=== PATIENT | female | born 1930 | race Caucasian/White ===

== ENCOUNTER 2016-12-30 14:26 | Emergency (ER) | payer MEDICARE, OTHER ==
[~2016-12-30 14:26] MED LIST: ADALAT CC30 MG PO; ADVAIR45P INH; ASAB PO; AT25 PO; ATV.5 PO; B121000P SC; CIP5 PO; DCN100 PO; DEMA100 PO; DEXILANT; DEXILANT PO; EMLA TOP; FOLIC PO; HALF81 PO; HYDROCORT12 TOP; I-CAPS PO; ICAPS MV PO; IMDUR30 PO; IMDUR60 PO; IMOD PO; IRON PO; KAPIDEX60 MG PO; L20 PO; LEVAQUIN5T PO; LIPITOR40 PO; LOPRESS HC100 MG/25 PO; MCZ25 PO; MEG20 PO; MELA3 PO; MELATONIN CR3 MG PO; NEXIUM40 PO; NIFEDIAC CC30 MG PO; NIFEDICAL XL30 MG PO; NITROSTAT0.4 MG SL; NXL3 PO; ORGAN-I NR200 MG PO; OXECTA5 MG PO; OXYCOD PO; OXYIR5 MG PO; PCET PO; PHOSLO PO; PLAVIX; PLAVIX PO; PR25 PO; PRIM50B PO; REFRESH OP; REFRESH OPH; ROCALTROL0.25 MCG OR; ROCALTROL0.5 MCG OR; SENSIPAR30 M1 PO; SKELAXIN8 PO; SUCR PO; TESSALON200 MG PO; TOPXL100 PO; TOPXL50 PO; TRANSSCOP TOP; TUMSROLL PO; ZANAFLEX 4 MG TA4 MG PO; ZOL100 PO; ZOL50 PO; [UNRECOGNIZED DRUG - OTHER] PO; [UNRECOGNIZED DRUG - OTHER] PO; [UNRECOGNIZED DRUG - OTHER] PO; [UNRECOGNIZED DRUG - OTHER] TOP
== END 2016-12-30 17:30 | disposition home or self-care (01) ==
LOC: ER 14:26
DX: I12.0 Hypertensive chronic kidney disease with stage 5 chronic kidney disease or end stage renal disease (principal); N18.6 End stage renal disease; Z99.2 Dependence on renal dialysis; G47.30 Sleep apnea, unspecified; I50.9 Heart failure, unspecified; F03.90 Unspecified dementia, unspecified severity, without behavioral disturbance, psychotic disturbance, mood disturbance, and anxiety
CPT/HCPCS: 99285

== ENCOUNTER 2017-03-17 15:54 | Emergency (ER) | payer MEDICARE, OTHER ==
[2017-03-17 15:48] LABS: BASOPHILS 0.2 %; BASOPHILS ABSOLUTE 0.01 10/3/uL (0.0-0.16); EOSINOPHILS 1.6 %; EOSINOPHILS ABSOLUTE 0.08 10/3/uL (0.0-0.53); ER CBC TAT 0 Hrs 08 Mins; IMMATURE GRANULOCYTES 0.2 %; IMMATURE GRANULOCYTES ABSOLUTE 0.01 10/3/uL (0.0-0.11); LYMPHOCYTES 17.6 %; LYMPHOCYTES ABSOLUTE 0.86 10/3/uL (0.67-4.30); MEAN CORPUS HGB CONC 34.6 g/dL (32.0-36.0); MEAN CORPUSCULAR VOLUME 98.1 fL (80-100); MEAN PLATELET VOLUME 10.9 fL (9.2-13.0); MONOCYTES 4.9 %; MONOCYTES ABSOLUTE 0.24 10/3/uL (0.21-1.20); NEUTROPHILS 75.5 %; PLATELET COUNT 165 10/3/uL (150-400); RBC DISTRIBUTION WIDTH 14.6 % (12.0-16.0); WHITE BLOOD CELLS 4.9 10/3/uL (4.5-10.5)
[2017-03-17 15:51] LABS: HEMATOCRIT 41.3 % (36.0-48.0); HEMOGLOBIN 14.3 g/dL (12.0-16.0); MANUAL DIFF NO %; RED CELL COUNT 4.21 10/6/uL (4.0-5.6)
[2017-03-17 16:02] LABS: BUN (BLOOD UREA NITROGEN) 37 MG/DL (6-23); CHEST PAIN PROFILE TAT 0 Hrs 22 Mins; CHLORIDE, SERUM 102 MMOL/L (96-112); CO2 (CARBON DIOXIDE) 29 MMOL/L (24-34); CREATININE 4.28 MG/DL (0.55-1.02); GFR AFRICAN AMERICAN 10 ML/MIN (>=60); GFR NON AFRICAN AMERICAN 9 ML/MIN (>=60); GLUCOSE, SERUM 81 MG/DL (60-99); POTASSIUM, SERUM 4.6 MMOL/L (3.5-5.3); SODIUM, SERUM 140 MMOL/L (135-148); TROPONIN I 0.04 NG/ML (<0.05)
[2017-03-17 16:08] LABS: PARTIAL THROMBO TIME 29.6 SEC (22.5-37.2); PROTIME (NOT ORD) 13.4 SEC (12.0-14.5)
[2017-03-17 16:17] LABS: ASCORBIC ACID (UR NOT ORDER) NEG (NEG); BILIRUBIN, URINE NEGATIVE (NEG); KETONE, URINE NEGATIVE (NEG); LEUKOCYTE ESTERASE(NOT OR LARGE (NEG); NITRITE (URINE) NEG (NEG); WBC (NOT ORDERED) (RFLEX) 120 (0-5)
[2017-03-17 16:18] LABS: ER URINALYSIS TAT 0 Hrs 37 Mins
== END 2017-03-17 20:43 | disposition home or self-care (01) ==
LOC: ER 15:54
PROVIDERS: Emergency Medicine
DX: R07.81 Pleurodynia (principal); N39.0 Urinary tract infection, site not specified; R10.9 Unspecified abdominal pain; I13.0 Hypertensive heart and chronic kidney disease with heart failure and stage 1 through stage 4 chronic kidney disease, or unspecified chronic kidney disease; N18.9 Chronic kidney disease, unspecified; I50.9 Heart failure, unspecified; F03.90 Unspecified dementia, unspecified severity, without behavioral disturbance, psychotic disturbance, mood disturbance, and anxiety; Z99.2 Dependence on renal dialysis; Z95.5 Presence of coronary angioplasty implant and graft; Z95.1 Presence of aortocoronary bypass graft; Z88.2 Allergy status to sulfonamides; Z88.5 Allergy status to narcotic agent; Z88.6 Allergy status to analgesic agent; Z79.82 Long term (current) use of aspirin; Z79.899 Other long term (current) drug therapy
CPT/HCPCS: 80048; 81001; 83735; 84484; 85025; 85610; 85730; 87077; 87086; 87186; 93005; 96374; 99285; A9270-GY

== ENCOUNTER 2017-03-21 19:52 | Inpatient (IN) | payer MEDICARE, OTHER ==
--- NOTE | ~2017-03-21 | CN ---
Consultation Report [facility] [address] [place]. [address] NAME: KEV RONDON : [birth year] STATUS : ADM IN [facility]#: [id number] AGE: 86 ADM/REG DATE : 03/22/17 MR#: [id number] REPORT SERV DATE: 03/25/17 DICTATED BY: AMINAH SALAS DATE: 03/25/17 REPORT STATUS : Draft TRANSCRIBED BY: MODRegine DATE: 03/25/17 NEUROLOGY CONSULTATION DATE OF CONSULTATION: 03/24/2017 REASON FOR CONSULTATION: Acute mental status change and "facial tic." HOSPITALIST/MOTOR SCOOTER REPAIRER: Marlo Chacon M.D. HISTORY OF PRESENT ILLNESS: The patient is an 86-year-old female, who was admitted to the hospital because of acute kidney injury in addition to chronic kidney disease. The patient is currently receiving hemodialysis. The patient has urinary tract infection and has been encephalopathic. In addition to this, it has been noted that she has a facial tic, there was a concern that she may be having seizure activity. Consequently, Neurology was consulted. PAST MEDICAL HISTORY: End-stage renal disease, hemodialysis, coronary artery disease (coronary artery bypass grafting), anxiety, frequent falls, peripheral artery disease, anemia, vertigo, essential tremor, restless legs syndrome, depression, and peripheral vascular disease. PAST SURGICAL HISTORY: Revascularization for peripheral vascular disease, coronary artery bypass grafting. HOME MEDICATION: Artificial Tears, aspirin 81 mg q.a.m., Sensipar tab 30 mg daily, Plavix 75 mg daily, Imdur 60 mg twice a day, Diamode 2 mg p.r.n. diarrhea, Antivert 25 mg t.i.d. p.r.n., Adalat CC 30 mg twice a day, Mysoline 50 mg Friday, Friday, and Friday, Requip 0.5 mg twice a day, Zoloft 100 mg at bedtime, Demadex 100 mg Friday, , Friday, and Friday. ALLERGIES: SULFA, ANTI-INFLAMMATORIES, AND CODEINE. SOCIAL HISTORY: The patient lives in assisted living. She does not drink, smoke, or use illicit drugs. FAMILY HISTORY: Unknown. The patient is unable to give us a good history. REVIEW OF SYSTEMS: The patient unable to give a good history. PHYSICAL EXAMINATION: VITAL SIGNS: The patient is an 86-year-old female, who stands and 170.18 cm tall, weighs 58.74 kilos. She is afebrile. Heart rate 51, respiratory rate 16, O2 saturations on room air 97%, blood pressure 117/55. Consultation Report [facility] [id number] [place]. [address] NAME: KEV RONDON : [birth year] STATUS : ADM IN [facility]#: [id number] AGE: 86 ADM/REG DATE : 03/22/17 MR#: [id number] REPORT SERV DATE: 03/25/17 DICTATED BY: AMINAH SALAS DATE: 03/25/17 REPORT STATUS : Draft TRANSCRIBED BY: MAICOL DATE: 03/25/17 NEURO: She is awake, she is extremely hard of hearing. She is oriented to person only. She can follow a few simple commands. Voice is hypophonic. She is bradykinetic and Jordin phrenic. Pupils are 3 mm. PERRLA. Cranial nerves 2 through 12 are intact. She can move all extremities x4. She does have slight myoclonus on the right side of her face and with the right shoulder. DIAGNOSTIC DATA: CT of the brain, no acute changes. Okewahgn-yj-bxpjvoqv atrophy. Chest x- ray cardiomegaly. B12 is 245. ASSESSMENT/PLAN: 1. Acute metabolic encephalopathy, multifactorial in nature. The patient has a urinary tract infection. She also has acute kidney injury in addition to her chronic kidney disease. She also has a low B12 level. At this point, I would recommend treating the underlying problems. 2. Myoclonus. We will obtain an EEG. Start the patient on Keppra 500 mg IV every 12 hours. 3. B12 deficiency. The patient's B12 will be replaced with cyanocobalamin IM. 4. The patient is a DNR. Thank you again for including us in consultation. We will follow with you. LAYA/MAICOL inah Salas DNP, ACNP-BC / [id number] CC: Marlo Chacon Jr, M.D. Sam Jacobs M.D.
--- NOTE | ~2017-03-21 | DS ---
Discharge Summary [facility] [address] [place]. [address] NAME: KEV RONDON : [birth year] STATUS : DIS IN PAT#: [id number] AGE: 86 ADM/REG DATE : 03/22/17 MR#: [id number] REPORT SERV DATE: 04/04/17 DICTATED BY: KASEY SCOTT DATE: 04/03/17 REPORT STATUS : Draft TRANSCRIBED BY: MODRegine DATE: 04/03/17 Data Collection from hospitalization DISCHARGE DIAGNOSES: 1. Acute metabolic encephalopathy. 2. Myoclonus. 3. End-stage renal disease. 4. Urinary tract infection. 5. Left great toe wound. 6. Chronic diastolic heart failure. 7. Obstructive sleep apnea. 8. Anxiety. 9. Falls. 10.Peripheral arterial disease. 11.Peripheral vascular disease. 12.Anemia. CONSULTATION: Aminah Hanley DNP, [facility]ANNER[facility]- PROCEDURES PERFORMED: 1. CT scan of the brain without contrast, 03/21/2017. 2. MRI of the brain without contrast, 03/24/2017. 3. Electroencephalogram, 03/23/2017. MEDICATIONS: Aspirin 81 mg every morning; Sensipar 30 mg at bedtime; Plavix 75 mg every morning; vitamin B12 1000 mcg IM every 30 days; Imdur 60 mg twice a day; multivitamins with minerals one tablet every morning; Procardia XL 30 mg twice a day; Mysoline 25 mg at bedtime as instructed; Requip 0.5 mg twice a day; Zoloft 100 mg at bedtime; Demadex 100 mg on Friday, , Friday, Friday at bedtime; Adalat CC 30 mg twice a day; Sensipar 30 mg every evening; artificial tears one drop daily as needed; Antivert 25 mg three times a day as needed; Diamode 2 mg as needed. CONDITION AT DISCHARGE: Stable. DISPOSITION: The patient was discharged to the [facility] on a renal diet with activities as instructed. HOSPITAL COURSE: This is an 86-year-old female, who resides at the [facility] and dialyzes on Mondays, Wednesdays, and Fridays. She had recently been evaluated at the [facility] Emergency Department for possible urinary tract infection. She was sent out to return to the [facility] facility, where she currently resides chronically and is on oral Levaquin. Subsequent resulting profile of her urinary specimen suggested that she was not sensitive to the oral Levaquin. Her son attempted to contact the facility-[facility] and dialysis unit in an effort to understand what the urinary culture was sensitive to. Unfortunately, by his recall, he was unable to receive answers to those questions. Urinary cultures here available at [facility] do in fact show an insensitivity to levofloxacin as well as tetracycline. The remainder of available antibiotics listed on the urinary workup appeared to show sensitivity. The patient's mentation continued to worsen Discharge Summary [facility] [address] [facility] [place]. [address] NAME: KEV RONDON : [birth year] STATUS : DIS IN PAT#: [id number] AGE: 86 ADM/REG DATE : 03/22/17 MR#: [id number] REPORT SERV DATE: 04/04/17 DICTATED BY: KASEY SCOTT DATE: 04/03/17 REPORT STATUS : Draft TRANSCRIBED BY: MODRegine DATE: 04/03/17 and she was seen here at the request of the facility and her son for evaluation. She had altered mentation. She was awake and alert in her bed. She was definitively altered. Her son states that on most days with exception of dialysis days, she is active at her facility and does participate in daily activities. She was admitted to the hospital at this time for further evaluation and treatment. Upon admission, creatinine level was 4.61. A CT scan of the brain without contrast showed moderate advanced diffuse cerebral involutional changes and moderate deep white chronic microvascular ischemic changes. No acute CVA or other intracranial pathology was noted. Urine culture in the emergency department had been obtained. Recent diagnostic urinalysis culture to show Enterococcus faecalis. She also has a great toe wound on the left that appears to be in a healing phase; however, it was concerning to her son. Considering her altered mentation, it was questionable if this was related to her urinary tract infection or other changes. The CT scan of her brain was currently negative. She did not have medications that would appear to be stationary. B12, folic acid, and ammonia level were going to be checked. She would maintain her hemodialysis schedule. Ampicillin was going to be initiated. We would protect the left upper extremity fistula. On the , her mentation had improved. She did complain of some neck pain. The neck was going to be x- rayed. Electroencephalogram was performed. Due to her altered mental status and encephalopathy, this was an abnormal EEG characterized by the presence of slowing and disorganization of cerebral activity. There was an increased of sharp in appearance waveforms seen anteriorly. Clinical correlation was recommended. No sustained epileptiform or paroxysmal activity was seen during this study. It was felt that this EEG may be compatible with the presence of diffuse cerebral dysfunction. The nature of which could not be determined on the basis of the EEG alone. Clinical correlation was recommended. Cervical spine x-ray showed probable demineralization. There was inadequate evaluation of C7. Otherwise, there was no evidence of acute cervical spine abnormality. On 03/24/2017, she did complain of headache and neck pain. Hemodialysis therapy was performed. She was seen by Aminah Hanley regarding acute mental status change and "facial tic." There was concern that she may be having seizure activity. A neurologic consult has been requested. Her B12 level was 245. This was going to be supplemented with cyanocobalamin IM. The patient was started on IV Keppra. The acute metabolic encephalopathy was felt to be multifactorial in nature. She does have a urinary tract infection and also acute kidney injury in addition to her chronic kidney disease. The patient is a DNR code status. On the , her only complaint was neck pain. An MRI of the brain without contrast had been performed. There was moderate to marked generalized atrophy. There was evidence of old deep white matter ischemic changes. There was some mild midbrain atrophy. There was an incidental soft-tissue mass, probably polyp arising off the posterior aspect of the nasal septum projecting into the nasopharyngeal airway. She had no witnessed myoclonus. She was drowsy. The Keppra dose was decreased. The following day, she said she felt like she needed to urinate, but could not. Bladder scan was going to be checked. Discharge planning was performed. Her T-max was 98.4. White count was 5.0. Keppra was continued. On 03/27/2017, she did not feel very good. She did complain of neck pain at times. Her lungs were clear. Keppra was continued. Discharge instructions were given. Due to her improved and stable condition, she was discharged to the [facility] with the above-stated instructions. Discharge Summary [facility] [address] [place]. [address] NAME: KEV RONDON : [birth year] STATUS : DIS IN PAT#: [id number] AGE: 86 ADM/REG DATE : 03/22/17 MR#: [id number] REPORT SERV DATE: 04/04/17 DICTATED BY: KASEY SCOTT DATE: 04/03/17 REPORT STATUS : Draft TRANSCRIBED BY: MODL DATE: 04/03/17 Information collected by: Agnieszka Schafer I submit the above information as my discharge summary. TG/AMICOL Kasey Scott M.D. / [id number] CC: Toby Zayas Jr, M.D. [facility]
--- NOTE | ~2017-03-21 | EEG ---
Electroencephalogram [facility] [id number] [place]. [address] NAME: KEV RONDON : [birth year] STATUS : ADM IN PAT#: [id number] AGE: 86 ADM/REG DATE : 03/22/17 MR#: [id number] REPORT SERV DATE: 03/25/17 DICTATED BY: HEATHER MENDEZ DATE: 03/25/17 REPORT STATUS : Draft TRANSCRIBED BY: MODL DATE: 03/25/17 INTERPRETING PHYSICIAN: Heather Mendez MD, - Neurology. EEG NUMBER: [id number]. REASON FOR EEG: Altered mental status encephalopathy. 23 surface electrodes, 10-20 international placement was used. The patient was noted to be awake, drowsy, and asleep. The patient was confused throughout the study. Photic stimulation was performed. Video monitoring was utilized. During the awake portion of the recording, the background activity consisted of moderate to higher voltage, poorly organized 8 to 9 cycles per second located in the posterior head regions. During drowsiness, lying in light sleep, increase of slower frequencies was observed throughout. The waveforms intermittently appeared sharp in frontal regions. No Systane or epileptiform activity was seen during the study. The patient's ekg monitor showed sinus bradycardia with heart rate of approximately 50 beats per minute. During sleep, no additional abnormalities were observed. IMPRESSION: ABNORMAL EEG CHARACTERIZED BY PRESENCE OF SLOWING AND DISORGANIZATION OF CEREBRAL ACTIVITY. INCREASE OF SHARP IN APPEARANCE WAVEFORMS WAS SEEN ANTERIORLY. CLINICAL CORRELATION IS RECOMMENDED. NO SUSTAINED EPILEPTIFORM OR PAROXYSMAL ACTIVITY WAS SEEN DURING THIS STUDY. THIS EEG MAY BE COMPATIBLE WITH PRESENCE OF DIFFUSE CEREBRAL DYSFUNCTION. THE NATURE OF WHICH COULD NOT BE DETERMINED ON THE BASIS OF THE EEG ALONE. CLINICAL CORRELATION IS RECOMMENDED. UMERA/MAICOL Heather Mendez MD / [id number] CC: Marol Chacon Jr, M.D. Sam Jacobs M.D.
--- NOTE | ~2017-03-21 | HP ---
History And Physical [facility] [address] [place]. [address] NAME: KEV RONDON : [birth year] STATUS : ADM Jan PAT#: [id number] AGE: 86 ADM/REG DATE : 03/21/17 MR#: [id number] REPORT SERV DATE: 03/22/17 DICTATED BY: KASEY SCOTT DATE: 03/22/17 REPORT STATUS : Draft TRANSCRIBED BY: MODL DATE: 03/22/17 DATE OF ADMISSION: 03/21/2017 REASON FOR ADMISSION: Altered mentation, questionable UTI in a hemodialysis patient. HISTORY OF PRESENT ILLNESS: This is an 86-year-old female patient who resides at the [facility] and dialyzes on a Friday, Friday, Friday schedule. She was recently evaluated at [facility] Emergency Department for possible urinary tract infection. She was sent out to return to the [facility] where she currently resides chronically on p.o. Levaquin. Subsequent resulting profile of her urinary specimen suggested that she was not sensitive to p.o. Levaquin. Her son who provides is an active practicing pharmacist he attempted to contact the facility, [facility], and her dialysis unit in effort to understand what the urinary culture was sensitive to. Unfortunately, by his recall today, he was unable to receive answers to those questions. Urinary cultures here to me available at [facility] do in fact show an insensitivity to levofloxacin as well as tetracycline. The remainder of available antibiotics listed on the urinary workup appear to show sensitivity. The patient's mentation continued to worsen, and she was sent here at the request of the facility and son for evaluation and is admitted now for altered mentation. She is awake and alert in the bed. She is definitively altered. The son states that on most days with exception of dialysis day she is active at her facility and does participate in daily activities. She is awake and alert. Does not verbalize much during interaction. Most of her recent medical information is gathered with the assistance of her son who is at bedside. PAST MEDICAL HISTORY: Positive for end-stage renal disease, Friday, Friday, Friday hemodialysis via left upper extremity access. History is also significant for CABG with known occluded SVG, MUSHTAQ, diastolic CHF, right total knee replacement, anxiety, falls, PAD with recent revascularization by Dr. Young in September of 2016, previous admissions for frequent falls, altered mentation, anemia, peripheral vascular disease with previous left lower extremity revascularization. REVIEW OF SYSTEMS: Completed with the assistance of her family at the bedside. The patient is unable to participate due to her current mental status. ALLERGIES: SHE LISTS ALLERGIES TO SULFA ANTIBIOTICS, NONSTEROIDAL MEDICATIONS, CODEINE. ACTIVE MEDICATIONS: Include Artificial Tears one drop OPH daily p.r.n., ASA 81 mg daily, Sensipar 30 mg p.o. at bedtime, Plavix 75 mg p.o. daily, isosorbide 60 mg p.o. b.i.d., Levaquin 250 mg q.48 x three doses, 2 mg p.o. daily p.r.n., Antivert 25 mg p.o. t.i.d. p.r.n., multivitamin tabs one daily, 30 mg p.o. b.i.d., primidone 50 mg p.o. daily, Requip 0.5 mg p.o. b.i.d., Zoloft 100 mg p.o. at bedtime, Demadex 100 mg p.o. Friday, , Friday, and Friday. SOCIAL HISTORY: No ETOH. No illicit drugs. No tobacco. Does live in an assisted living facility per her recent medical history. History And Physical [address] [address] NAME: KEV RONDON : [birth year] STATUS : ADM Jan PAT#: [id number] AGE: 86 ADM/REG DATE : 03/21/17 MR#: [id number] REPORT SERV DATE: 03/22/17 DICTATED BY: KASEY SCOTT DATE: 03/22/17 REPORT STATUS : Draft TRANSCRIBED BY: MAICOL DATE: 03/22/17 PHYSICAL EXAMINATION: VITAL SIGNS: Blood pressure 180/76, temperature 98.7, respiratory rate 18, heart rate is 62 beats per minute. GENERAL: She is awake and alert. Does not answer questions or verbally interact with altered mentation at this point. No acute distress on evaluation. HEENT: Normocephalic and atraumatic. Normal ocular movements. No scleral icterus, conjunctival pallor is appreciated. NECK: Supple without thyromegaly. No JVD or mass. CHEST: Shows positive S1 and S2. No rubs or gallops. LUNGS: Diminished throughout. Normal expansion effort bilaterally. GI: Shows positive bowel sounds in all four quadrants. No appreciable mass, tenderness. : Deferred. EXTREMITIES: Show positive pulses. No clubbing, cyanosis, or edema. NEUROLOGIC: She is unable to be tested in her current state. SKIN: Warm, dry, and intact visualized surfaces without rash, lesions, or ecchymosis with exception of her left great toe which has an early stage II wound that has received previous treatment. PSYCHIATRIC: Mood and affect are not assessable due to her current status. DIAGNOSTIC DATA: Pertinent laboratories and imaging to this evaluation are as follows. B- natriuretic peptide most recent 1279.0. Renal Function Panel: Sodium 138, potassium 4.8, chloride 103, CO2 of 28, BUN 35, creatinine 4.61, reflected GFR 8 mL/minute, glucose of 69, calcium 8.4, phosphorus 6.0, albumin 3.0. Portable chest x-ray shows chronic changes of prior granulomatous exposure. Cardiomegaly is stable. Prior CABG. Lungs are clear of infiltrate or failure on evaluation. CT of the brain without contrast identifies moderate advanced diffuse cerebral involutional changes and moderate deep white chronic microvascular ischemic changes. No acute CVA or other intracranial pathology is noted. Urinary culture collected at a prior evaluation in the emergency department as listed in the HPI. IMPRESSION AND PLAN: This is an end-stage renal disease patient with a recent medical history as reflected above related by her son who is at bedside during evaluation with worsening altered mentation, now admitted to [facility]. Recent diagnostic urinalysis cultured to show Enterococcus faecalis with julien-sensitivity with exception of antibiotic that was provided here and tetracycline. The patient also has a left great toe wound that appears to be in its healing phases, however, is concerning to the son. Considering her altered mentation, it is questionable if this is related to her urinary tract infection or other changes. CT of her brain is currently negative. She does not have medications that would appear to be stationary. We will check B12, folic acid as well as ammonia level. Request Neurologic evaluation on rounds today. She has maintained her History And Physical [facility] [address] [place]. [address] NAME: KEV RONDON : [birth year] STATUS : ADM Jan PAT#: [id number] AGE: 86 ADM/REG DATE : 03/21/17 MR#: [id number] REPORT SERV DATE: 03/22/17 DICTATED BY: KASEY SCOTT DATE: 03/22/17 REPORT STATUS : Draft TRANSCRIBED BY: MODL DATE: 03/22/17 hemodialysis schedule this week; however, she did miss previous week scheduling. With sensitivity noted on active medical record, ampicillin 1 g q.12 hours was suggested by the pharmacist antibiotic liaison, and we will initiate that today. Strict I's and Os. Daily weights. Protect her left upper extremity fistula. We will place her closer to the nurses' station to be closer to staff assistance considering her altered mentation, make her a high fall risk, and her bed alarm should remain on at all times. Physical Therapy evaluation and Occupational Therapy evaluation. Hopefully over the next three to five days, she will [facility]. Of note, the son states that the patient had previously discussed cessation of dialysis treatment after the holidays; however, she was dissuaded from this course of action by a family member and a member of clergy. Certainly, at this point, it is inappropriate to proceed in that direction. However, in future discussions, the patient may wish to move toward cessation of dialysis treatment on her own volition when her mentation is clear. Further modification of treatment plan may be made based on clinical presentation, patient laboratory results, further consultation with Renal attending. We appreciate the assistance of the pharmacy staff and recommendation of the antibiotics as well as Neurology providers in evaluation of this patient. DICTATED BY: Kasey Harrison NP JR/MAICOL Kasey Scott M.D. / [id number] CC: Toby Zayas Jr, M.D.
[2017-03-21 21:47] LABS: BASOPHILS 0.2 %; BASOPHILS ABSOLUTE 0.01 10/3/uL (0.0-0.16); EOSINOPHILS 1.3 %; EOSINOPHILS ABSOLUTE 0.06 10/3/uL (0.0-0.53); ER CBC TAT 0 Hrs 07 Mins; HEMATOCRIT 36.6 % (36.0-48.0); HEMOGLOBIN 12.4 g/dL (12.0-16.0); IMMATURE GRANULOCYTES 0.7 %; IMMATURE GRANULOCYTES ABSOLUTE 0.03 10/3/uL (0.0-0.11); LYMPHOCYTES 24.4 %; LYMPHOCYTES ABSOLUTE 1.09 10/3/uL (0.67-4.30); MANUAL DIFF NO %; MEAN CORPUS HGB CONC 33.9 g/dL (32.0-36.0); MEAN CORPUSCULAR HEMOGLOB 33.4 pg (26.0-34.0); MEAN CORPUSCULAR VOLUME 98.7 fL (80-100); MEAN PLATELET VOLUME 12.1 fL (9.2-13.0); MONOCYTES ABSOLUTE 0.27 10/3/uL (0.21-1.20); NEUTROPHILS 67.4 %; NEUTROPHILS ABSOLUTE 3.01 10/3/uL (2.02-8.40); PLATELET COUNT 98 10/3/uL (150-400); RBC DISTRIBUTION WIDTH 14.4 % (12.0-16.0); RED CELL COUNT 3.71 10/6/uL (4.0-5.6); WHITE BLOOD CELLS 4.5 10/3/uL (4.5-10.5)
[2017-03-21 22:03] LABS: CALCIUM, SERUM 8.2 MG/DL (8.5-10.4); CHLORIDE, SERUM 101 MMOL/L (96-112); CO2 (CARBON DIOXIDE) 27 MMOL/L (24-34); CREATININE 4.04 MG/DL (0.55-1.02); GFR AFRICAN AMERICAN 11 ML/MIN (>=60); GFR NON AFRICAN AMERICAN 9 ML/MIN (>=60); GLUCOSE, SERUM 78 MG/DL (60-99); POTASSIUM, SERUM 4.4 MMOL/L (3.5-5.3); SODIUM, SERUM 136 MMOL/L (135-148)
[2017-03-21 22:04] LABS: BUN (BLOOD UREA NITROGEN) 29 MG/DL (6-23); CHEST PAIN PROFILE TAT 0 Hrs 24 Mins; TROPONIN I 0.05 NG/ML (<0.05)
[2017-03-21] MEDS ORDERED: PLAVIX PO (22:05)
[2017-03-21] MEDS ORDERED: ASAB PO (22:05)
[2017-03-21] MEDS ORDERED: IMDUR60 PO (22:06)
[2017-03-21] MEDS ORDERED: LEVAQ250 PO (22:07)
[2017-03-21] MEDS ORDERED: ADALAT CC30 MG PO (22:08)
[2017-03-21] MEDS ORDERED: REQUIP5 PO (22:09)
[2017-03-21] MEDS ORDERED: MULTIVIT/MIN PO (22:10)
[2017-03-21] MEDS ORDERED: SENSIPAR30 M1 PO (22:10)
[2017-03-21] MEDS ORDERED: PRIM50B PO (22:11)
[2017-03-21] MEDS ORDERED: ZOL100 PO (22:11)
[2017-03-21] MEDS ORDERED: DEMA100 PO (22:12)
[2017-03-21] MEDS ORDERED: TEARS PURE OPH (22:12)
[2017-03-21] MEDS ORDERED: DIAMODE2 MG PO (22:13)
[2017-03-21] MEDS ORDERED: MCZ25 PO (22:13)
[2017-03-21 23:12] LABS: INTERNATIONAL NORMAL RATI 1.1 UNITS (-); PROTIME (NOT ORD) 14.1 SEC (12.0-14.5)
[2017-03-21 23:13] LABS: PARTIAL THROMBO TIME 30.2 SEC (22.5-37.2)
[2017-03-22 08:22] LABS: CALCIUM, SERUM 8.4 MG/DL (8.5-10.4); CHLORIDE, SERUM 103 MMOL/L (96-112); CO2 (CARBON DIOXIDE) 28 MMOL/L (24-34); GLUCOSE, SERUM 69 MG/DL (60-99); POTASSIUM, SERUM 4.8 MMOL/L (3.5-5.3); SODIUM, SERUM 138 MMOL/L (135-148)
[2017-03-22 08:23] LABS: BUN (BLOOD UREA NITROGEN) 35 MG/DL (6-23); CREATININE 4.61 MG/DL (0.55-1.02); GFR AFRICAN AMERICAN 9 ML/MIN (>=60); GFR NON AFRICAN AMERICAN 8 ML/MIN (>=60)
[2017-03-23 08:52] LABS: BASOPHILS 0.3 %; BASOPHILS ABSOLUTE 0.01 10/3/uL (0.0-0.16); EOSINOPHILS 4.1 %; EOSINOPHILS ABSOLUTE 0.14 10/3/uL (0.0-0.53); IMMATURE GRANULOCYTES 0.3 %; IMMATURE GRANULOCYTES ABSOLUTE 0.01 10/3/uL (0.0-0.11); LYMPHOCYTES 43.5 %; MEAN CORPUS HGB CONC 34.5 g/dL (32.0-36.0); MEAN CORPUSCULAR HEMOGLOB 34.3 pg (26.0-34.0); MEAN CORPUSCULAR VOLUME 99.4 fL (80-100); MEAN PLATELET VOLUME 11.6 fL (9.2-13.0); MONOCYTES 8.4 %; MONOCYTES ABSOLUTE 0.29 10/3/uL (0.21-1.20); NEUTROPHILS 43.4 %; PLATELET COUNT 117 10/3/uL (150-400); RBC DISTRIBUTION WIDTH 14.2 % (12.0-16.0); RED CELL COUNT 3.21 10/6/uL (4.0-5.6); WHITE BLOOD CELLS 3.5 10/3/uL (4.5-10.5)
[2017-03-23 08:54] LABS: HEMATOCRIT 31.9 % (36.0-48.0)
[2017-03-23 08:55] LABS: MANUAL DIFF NO %
[2017-03-23 09:35] LABS: ALBUMIN 2.9 G/DL (3.5-5.0); CHLORIDE, SERUM 102 MMOL/L (96-112); CO2 (CARBON DIOXIDE) 25 MMOL/L (24-34); PHOSPHORUS, SERUM 6.6 MG/DL (2.5-4.5); POTASSIUM, SERUM 4.6 MMOL/L (3.5-5.3); SODIUM, SERUM 135 MMOL/L (135-148)
[2017-03-23 09:38] LABS: BUN (BLOOD UREA NITROGEN) 50 MG/DL (6-23); CREATININE 6.15 MG/DL (0.55-1.02); FOLATE 7.2 NG/ML (>5.2); GFR AFRICAN AMERICAN 6 ML/MIN (>=60); GFR NON AFRICAN AMERICAN 6 ML/MIN (>=60); GLUCOSE, SERUM 87 MG/DL (60-99)
[2017-03-24 15:17] LABS: BASOPHILS 0.3 %; BASOPHILS ABSOLUTE 0.01 10/3/uL (0.0-0.16); EOSINOPHILS 4.1 %; EOSINOPHILS ABSOLUTE 0.15 10/3/uL (0.0-0.53); HEMATOCRIT 29.7 % (36.0-48.0); HEMOGLOBIN 10.1 g/dL (12.0-16.0); IMMATURE GRANULOCYTES 0.3 %; IMMATURE GRANULOCYTES ABSOLUTE 0.01 10/3/uL (0.0-0.11); LYMPHOCYTES 44.9 %; LYMPHOCYTES ABSOLUTE 1.63 10/3/uL (0.67-4.30); MEAN CORPUSCULAR HEMOGLOB 33.3 pg (26.0-34.0); MEAN PLATELET VOLUME 12.1 fL (9.2-13.0); MONOCYTES 7.2 %; MONOCYTES ABSOLUTE 0.26 10/3/uL (0.21-1.20); NEUTROPHILS 43.2 %; NEUTROPHILS ABSOLUTE 1.57 10/3/uL (2.02-8.40); PLATELET COUNT 111 10/3/uL (150-400); RBC DISTRIBUTION WIDTH 14.2 % (12.0-16.0); RED CELL COUNT 3.03 10/6/uL (4.0-5.6); WHITE BLOOD CELLS 3.6 10/3/uL (4.5-10.5)
[2017-03-24 15:18] LABS: MANUAL DIFF NO %
[2017-03-24 15:36] LABS: ALBUMIN 2.8 G/DL (3.5-5.0); CALCIUM, SERUM 7.3 MG/DL (8.5-10.4); CHLORIDE, SERUM 105 MMOL/L (96-112); CO2 (CARBON DIOXIDE) 26 MMOL/L (24-34); PHOSPHORUS, SERUM 7.5 MG/DL (2.5-4.5); POTASSIUM, SERUM 4.9 MMOL/L (3.5-5.3); SODIUM, SERUM 138 MMOL/L (135-148)
[2017-03-24 15:37] LABS: BUN (BLOOD UREA NITROGEN) 67 MG/DL (6-23); CREATININE 7.49 MG/DL (0.55-1.02); GFR AFRICAN AMERICAN 5 ML/MIN (>=60); GFR NON AFRICAN AMERICAN 4 ML/MIN (>=60); GLUCOSE, SERUM 106 MG/DL (60-99)
[2017-03-24 19:56] LABS: FREE T4 1.06 NG/DL (0.76-1.46)
[2017-03-24 19:57] LABS: CALCIUM, SERUM 8.3 MG/DL (8.5-10.4); ULTRASENSITIVE TSH 2.97 MCIU/ML (0.358-3.740)
[2017-03-24 20:13] LABS: INTACT PTH (ICMA) 510.2 PG/ML (10.0-65.0)
[2017-03-26 08:15] LABS: BASOPHILS 0.2 %; BASOPHILS ABSOLUTE 0.01 10/3/uL (0.0-0.16); EOSINOPHILS 2.4 %; EOSINOPHILS ABSOLUTE 0.12 10/3/uL (0.0-0.53); HEMATOCRIT 32.7 % (36.0-48.0); IMMATURE GRANULOCYTES 0.2 %; IMMATURE GRANULOCYTES ABSOLUTE 0.01 10/3/uL (0.0-0.11); LYMPHOCYTES 30.5 %; LYMPHOCYTES ABSOLUTE 1.53 10/3/uL (0.67-4.30); MANUAL DIFF NO %; MEAN CORPUS HGB CONC 33.6 g/dL (32.0-36.0); MEAN CORPUSCULAR HEMOGLOB 33.3 pg (26.0-34.0); MEAN CORPUSCULAR VOLUME 99.1 fL (80-100); MEAN PLATELET VOLUME 11.5 fL (9.2-13.0); MONOCYTES 5.2 %; MONOCYTES ABSOLUTE 0.26 10/3/uL (0.21-1.20); NEUTROPHILS 61.5 %; NEUTROPHILS ABSOLUTE 3.08 10/3/uL (2.02-8.40); PLATELET COUNT 116 10/3/uL (150-400); RBC DISTRIBUTION WIDTH 14.2 % (12.0-16.0)
[2017-03-26 08:37] LABS: ALBUMIN 2.9 G/DL (3.5-5.0); CALCIUM, SERUM 7.9 MG/DL (8.5-10.4); CHLORIDE, SERUM 107 MMOL/L (96-112); CO2 (CARBON DIOXIDE) 27 MMOL/L (24-34); GLUCOSE, SERUM 91 MG/DL (60-99); POTASSIUM, SERUM 4.8 MMOL/L (3.5-5.3); SODIUM, SERUM 143 MMOL/L (135-148)
[2017-03-26 08:39] LABS: BUN (BLOOD UREA NITROGEN) 43 MG/DL (6-23); CREATININE 5.52 MG/DL (0.55-1.02); GFR AFRICAN AMERICAN 7 ML/MIN (>=60); GFR NON AFRICAN AMERICAN 6 ML/MIN (>=60); PHOSPHORUS, SERUM 5.4 MG/DL (2.5-4.5)
== END 2017-03-27 14:45 | DRG 70 ==
LOC: ER 19:52 → 2SO 23:30
PROVIDERS: Emergency Medicine; Internal Medicine Nephrology; Nurse Practitioner; Registered Nurse
PROC: 5A1D60Z (ICD-10-PCS; principal; 2017-03-24)
DX: G93.41 Metabolic encephalopathy (principal); N18.6 End stage renal disease; I13.2 Hypertensive heart and chronic kidney disease with heart failure and with stage 5 chronic kidney disease, or end stage renal disease; N17.9 Acute kidney failure, unspecified; N39.0 Urinary tract infection, site not specified; I50.32 Chronic diastolic (congestive) heart failure; B95.2 Enterococcus as the cause of diseases classified elsewhere; B96.89 Other specified bacterial agents as the cause of diseases classified elsewhere; I25.10 Atherosclerotic heart disease of native coronary artery without angina pectoris; G47.33 Obstructive sleep apnea (adult) (pediatric); Z66 Do not resuscitate; Z96.651 Presence of right artificial knee joint; F41.9 Anxiety disorder, unspecified; I73.9 Peripheral vascular disease, unspecified; D64.9 Anemia, unspecified; L89.892 Pressure ulcer of other site, stage 2; G25.81 Restless legs syndrome; Z99.2 Dependence on renal dialysis; Z95.1 Presence of aortocoronary bypass graft; Z91.81 History of falling; Z99.81 Dependence on supplemental oxygen; Z88.2 Allergy status to sulfonamides; Z88.5 Allergy status to narcotic agent
CPT/HCPCS: 36600; 70360; 70450; 70551; 71010; 72040; 80048; 80069; 82140; 82306; 82310; 82330; 82607; 82746; 82803; 82947; 83735; 83880; 83970; 84132; 84295; 84439; 84443; 84484; 85014; 85025; 85610; 85730; 93005; 94640; 95819; 96374; 96375; 99291; A9270-GY; G0257; J0290; J0360; J1953; J2405